=== PATIENT | male | born 1975 | race Hispanic/Latino ===

== ENCOUNTER 2021-08-26 07:05 | Day surgery (SDC) | payer BC ==
[2021-08-26] MEDS ORDERED: Ringers Lactate 1,000 ML IV ONE (07:11)
[2021-08-26] MEDS ORDERED: CEFOXITIN 2 GM in NA CHLORIDE 0.9% 100 ML IVPB SCH (07:30)
[2021-08-26] MEDS ORDERED: FENTANYL CITR 100 MCG/2 ML ONE (08:10)
[2021-08-26] MEDS ORDERED: MIDAZOLAM HCL 2 MG/2 ML INJ ONE (08:10)
[2021-08-26] MEDS ORDERED: propofoL 200 MG/20 ML VIAL IV ONE (08:11)
[2021-08-26] MEDS ORDERED: LIDOCAINE 1% MPF 2 ML AMPULE ONE (08:11)
[2021-08-26] MEDS ORDERED: ROCURONIUM 50 MG/5 ML VIAL IV ONE (08:11)
[2021-08-26] MEDS ORDERED: GLYCOPYRROLATE 0.2 MG/ML SYR ONE ×2 (08:12→09:04)
[2021-08-26] MEDS: BUPIVACAINE 0.25% PF 10 ML VIAL ONE ×2 (08:14→08:47)
[2021-08-26] MEDS ORDERED: dexAMETHasone 10 MG/ML VIAL ONE (08:54)
[2021-08-26] MEDS ORDERED: ONDANSETRON 4 MG/2 ML VIAL ONE (08:54)
[2021-08-26] MEDS ORDERED: KETOROLAC 30 MG/ML INJ ONE (08:54)
[2021-08-26] MEDS ORDERED: NEOSTIGMINE 1 MG/ML -5 ML ONE (09:13)
--- NOTE | 2021-08-26 09:36 | P.OP ---
Preoperative diagnosis: Chronic Cholecystitis with Cholelithiasis Postoperative diagnosis: Chronic Cholecystitis with Cholelithiasis Primary procedure: Laparoscopic Cholecystectomy Secondary procedure: ICG cholangiography Anesthesia: GETA + Local Estimated blood loss: <5cc Specimen: gallbladder Findings: gallstones Complications: None Transferred to: Recovery Room Condition: Good
[2021-08-26] MEDS: HYDROMORPHONE HCL 1 MG/ML INJ ONE ×2 (09:55→10:04)
[2021-08-26] MEDS ORDERED: PROMETHAZINE INJ 25 MG/ML AMP ONE (09:58)
[2021-08-26] MEDS ORDERED: HYDROCODONE/APAP 7.5/325 MG TAB ONE (10:45)
[2021-08-26 11:36] VITALS: BP 121/75; TEMP 97.2; O2SAT 96
--- NOTE | 2021-08-26 18:56 | OP ---
Date of Procedure: 08/26/2021 Surgeon: Jaron Bateman MD, Preoperative Diagnosis: Chronic cholecystitis with cholelithiasis. Postoperative Diagnosis: Chronic cholecystitis with cholelithiasis. Procedures Performed: 1.Laparoscopic cholecystectomy. 2.Indocyanine green cholangiography. Anesthesia: General endotracheal plus local with 0.25% Marcaine. Estimated Blood Loss: Less than 5 mL. Specimen: Gallbladder. Findings: Gallstones with cholecystitis. Complications: None. Disposition: The patient was transferred to the recovery room in good condition. Procedure In Detail: After informed consent was obtained, the patient was brought to the operating r oom, prepped and draped in the usual sterile fashion after adequate anesthesia was achieved. I anest hetized the area in the supraumbilical position with 0.25% Marcaine and sharply incised. A 5 mm 0-de gree optical trocar was introduced in the abdomen without evidence of complication. Insufflation was obtained to 15 mmHg at this time. No injury to vital structures upon into entry the abdomen. The a bdomen after being completely insufflated to 15 mmHg was inspected. The gallbladder was noted to be quite distended in the right upper quadrant with a nodular appearance consistent with multiple gallst ones and omental attachments to the anterior surface. At this point, [address] d, 1 in the epigastrium and 1 in the right upper quadrant. This was similarly anesthetized and sharp ly incised. A 5 mm trocar was placed under direct visualization without evidence of complication. T he umbilical trocar was then up-sized to a 12 mm under direct visualization without evidence of compl ication. The patient was positioned head up right-side up position. Ratcheted graspers were used to grasp the patient's gallbladder, placed towards the right shoulder. Dissection was continued down w ith electrocautery to dissect and expose 2 structures identified as the cystic duct cystic artery. T hese were confirmed with ICG cholangiography at this point and a critical view of safety was obtained at this point. Double titanium clips were placed on the proximal side and on the distal side, singl y on both the cystic duct and cystic artery and the structures were ligated with Endoshears. The gal lbladder was then removed from the hepatic fossa without evidence of complication with minimal hemost atic maneuvers required in the midportion of the gallbladder fossa. The gallbladder was placed in En doCatch bag, removed through the umbilical trocar and sent off for pathologic examination. The area was copiously irrigated multiple times and suctioned out until completely clear. No hemostatic maneu vers were required. At this point, the clips were found to be in good anatomic position. The patien t was positioned back into neutral position. The umbilical trocar site was closed using a Marcos-Fredi rayshawn suture passer with 0 Vicryl in interrupted fashion with good approximation of tissues. The abd omen was completely desufflated under direct vision without evidence of complication after the trocar s were removed. All skin incisions were then copiously irrigated and closed with 4-0 Monocryl in a r unning fashion. Dermabond placed over top. The patient tolerated the procedure well without evidenc e of complication and transferred to PACU in good condition. All counts were correct at the end of t he case. RON/WINSOME Voice ID: [id number] Report ID: [id number]
== END 2021-08-26 11:25 | disposition home or self-care (01) ==
LOC: OR 07:05
PROVIDERS: ATTEND Surgery
PROC: BF03YZZ Plain Radiography of Gallbladder and Bile Ducts using Other Contrast (ICD-10-PCS; 2021-08-26)
PROC: 0FT44ZZ Resection of Gallbladder, Percutaneous Endoscopic Approach (ICD-10-PCS; principal; 2021-08-26 08:30)
DX: K80.10 Calculus of gallbladder with chronic cholecystitis without obstruction (principal); Z20.822 Contact with and (suspected) exposure to COVID-19
CPT/HCPCS: 88304; 47563; U0002; J2704; J2550; J2250; J3010; J1100; J1170; J2710; J7120; J0694; J2405

== ENCOUNTER 2023-02-13 06:58 | Day surgery (SDC) | payer BC ==
--- NOTE | 2023-02-12 13:57 | EKG ---
Test Date: 2023-02-10 Test Time: 15:46:49 Table Keeper: CATALINA MEASUREMENT RESULTS: Intervals: Rate: 72 DE: 148 QRSD: 92 QT: 366 QTc: 400 Allen: P: 47 DE: 148 QRS: 17 T: 30 INTERPRETIVE STATEMENTS: Normal sinus rhythm Normal ECG No previous ECG available for comparison Electronically Signed On 02-12-23 13:55:36 CDT by Jann Frank
[2023-02-13] MEDS: NA CHLORIDE 0.9% 1,000 ML ONE ×3 (07:25→08:00)
[2023-02-13] MEDS ORDERED: propofoL 200 MG/20 ML VIAL IV ONE ×2 (08:11→08:50)
[2023-02-13] MEDS ORDERED: LIDOCAINE 1% MPF 5 ML VIAL ONE (08:12)
[2023-02-13 10:36] VITALS: O2SAT 99
[2023-02-13 10:43] VITALS: BP 99/69; TEMP 97.4
== END 2023-02-13 09:10 | disposition home or self-care (01) ==
LOC: OR 06:58
PROVIDERS: ATTEND Surgery
PROC: 0DB88ZX Excision of Small Intestine, Via Natural or Artificial Opening Endoscopic, Diagnostic (ICD-10-PCS; 2023-02-13)
PROC: 0DB78ZX Excision of Stomach, Pylorus, Via Natural or Artificial Opening Endoscopic, Diagnostic (ICD-10-PCS; 2023-02-13)
PROC: 0DB68ZX Excision of Stomach, Via Natural or Artificial Opening Endoscopic, Diagnostic (ICD-10-PCS; 2023-02-13)
PROC: 0DB48ZX Excision of Esophagogastric Junction, Via Natural or Artificial Opening Endoscopic, Diagnostic (ICD-10-PCS; principal; 2023-02-13 08:00)
DX: K21.9 Gastro-esophageal reflux disease without esophagitis (principal); R10.13 Epigastric pain; K29.30 Chronic superficial gastritis without bleeding; K26.7 Chronic duodenal ulcer without hemorrhage or perforation; K44.9 Diaphragmatic hernia without obstruction or gangrene; K29.80 Duodenitis without bleeding; K22.10 Ulcer of esophagus without bleeding
CPT/HCPCS: 93005; 80048; 36415; 88312; 82947; 88305; 43239; J2704 ×2; J2001; J7030